=== PATIENT | female | born 1970 | race Caucasian/White ===

== ENCOUNTER 2019-08-05 14:29 | Emergency (ER) | payer OTHER, MEDICAID, SELFPAY ==
[2019-08-05 14:44] VITALS: BP 203/127; PULSE 82; RESP 15; TEMP 36.4; O2SAT 99; BMI 21.7
--- NOTE | 2019-08-05 15:16 | ED_ITS ---
HPI - Wound/Laceration <SIOBHAN Gonzalez - Last Filed: 08/05/19 21:28> General Chief Complaint: Wound/Laceration Stated Complaint: Tag on arm seeping, 4 days Time Seen by Provider: 08/05/19 14:48 Source: patient Mode of arrival: ambulatory Limitations: no limitations History of Present Illness HPI narrative: 49-year-old female who is a heavy smoker and has a history of Crohn's disease, presents emergency department today complaining of increased pain her skin tag that she tried to remove with butane 4 days ago. She states the pain is a dull aching 8/10 that is worse with movement and palpation. She reports associated increased redness, clear oozing from the wound, increased warmth, chills, I believe she may have had a fever 1 point. She states the skin tag turn black and then started to ooze clear fluid. She denies any chest pain, dizziness, syncope, shortness of breath, vision changes, severe headaches, either concerning symptoms. Related Data Previous Rx's Medication Instructions Recorded doxycycline hyclate 100 mg PO BID 7 Days #14 cap 08/05/19 Allergies Allergy/AdvReac Type Severity Reaction Status Date / Time NSAIDS (Non-Steroidal Allergy Verified 08/05/19 14:44 Anti-Inflamma Penicillins Allergy Verified 08/05/19 14:44 Review of Systems <SIOBHAN Gonzalez - Last Filed: 08/05/19 21:28> Review of Systems Narrative: REVIEW OF SYSTEMS: GENERAL: Denies fever or chills. HENT: Denies head trauma. EYE: Denies double vision or vision loss. CARDIOVASCULAR: Denies syncope. MUSCULOSKELETAL: Denies weakness, or deformities. INTEGUMENTARY: Complains of redness and pain to her in her arms surrounding a skin tag, see HPI. NEURO: Denies numbness or tingling. PFSH <SIOBHAN Gonzalez - Last Filed: 08/05/19 21:28> Medical History Smoker (Acute) Social History Smoking Status: Current every day smoker Social History Smoking Status: Current every day smoker Exam <SIOBHAN Gonzalez - Last Filed: 08/05/19 21:28> Initial Vital Signs Initial Vital Signs: Vital Signs Temperature 97.5 F L 08/05/19 14:44 Pulse Rate 82 08/05/19 14:44 Respiratory Rate 15 08/05/19 14:44 Blood Pressure 203/127 H 08/05/19 14:44 Pulse Oximetry 99 08/05/19 14:44 PHYSICAL EXAMINATION: GENERAL: Well groomed, alert, and cooperative. Answers questions promptly and appropriately. Vital signs noted. HENT: Normocephalic, atraumatic. RESPIRATORY: Normal respiratory rate, trachea midline, airway patent. No stridor, nasal flaring or accessory muscle use. Smoker's cough present during examination. MUSCULOSKELETAL: Normal gait and coordination. Equal tone and mass bilaterally. EXTREMITIES: CMS intact. Moves all extremities. SKIN: Warm, dry, soft, appropriate color for ethnicity. A 4 cm skin tag was noted to right side of in her upper arm. Tip of the skin tag was black in color most likely indicating freezing that occurred with the butane application. Part of the skin tag was blistered and oozing serosanguineous fluid. There was 2-3cm of surrounding erythema to the area with slightly increased warmth. NEURO: Alert and Oriented X 3. Good coordination. PSYCH: Appropriate affect and mood. <Trudi Hackett MD - Last Filed: 08/06/19 16:25> Initial Vital Signs Initial Vital Signs: Vital Signs Temperature 97.5 F L 08/05/19 14:44 Pulse Rate 82 08/05/19 14:44 Respiratory Rate 15 08/05/19 14:44 Blood Pressure 203/127 H 08/05/19 14:44 Pulse Oximetry 99 08/05/19 14:44 Course <SIOBHAN Gonzalez - Last Filed: 08/05/19 21:28> Course Course Narrative: Patient's wound was cleaned and dressed with bacitracin and gauze. I spoke with patient about her elevated blood pressure and she states she knows it is very high and does not want any treatment for it. I also requested that the vitals be retaken for discharge, the nursing staff stated that they forgot. Orders Ordered: Discontinued Medications Bacitracin (Bacitracin) 1 applic TOP NOW ONE Stop: 08/05/19 15:16 Last Admin: 08/05/19 15:42 Dose: Not Given Documented by: ALEXYS Vital Signs Vital signs: Vital Signs - 8 hr 08/05/19 14:44 Temperature 97.5 F L Pulse Rate 82 Respiratory Rate 15 Blood Pressure 203/127 H Pulse Oximetry 99 <Trudi Hackett MD - Last Filed: 08/06/19 16:25> Orders Ordered: Discontinued Medications Bacitracin (Bacitracin) 1 applic TOP NOW ONE Stop: 08/05/19 15:16 Last Admin: 08/05/19 15:42 Dose: Not Given Documented by: ALEXYS Vital Signs Vital signs: Vital Signs - 8 hr 08/05/19 14:44 Temperature 97.5 F L Pulse Rate 82 Respiratory Rate 15 Blood Pressure 203/127 H Pulse Oximetry 99 [facility] - Wound/Laceration <SIOBHAN Gonzalez - Last Filed: 08/05/19 21:28> Medical Records Attestation: I reviewed the patient's medical records. Lab Data Attestation: I reviewed the patient's lab results. [facility] Narrative Medical decision making narrative: I suspect that patient's symptoms are caused by inflammation from the freezing of the butane to her skin take as well as cellulitis due to surrounding erythema of the wound, serosanguineous oozing, increased pain, and patient report of chills. I do not have concerns that she is septic as she is afebrile, non tachycardic, and the infection appears very localized. Patient was started on doxycycline as she reports an airway swelling anaphylaxis reaction to penicillin therefore I did not prescribe Keflex. Patient states she has taken doxycycline in the past and has worked well, and did not prescribe clindamycin as she reports she has Crohn's disease. Strict return precautions given and follow-up instructions discussed Discharge Plan Departure Patient Disposition: Home Clinical Impression: Inflamed skin tag Cellulitis Qualifiers: Site of cellulitis: extremity Site of cellulitis of extremity: upper extremity Laterality: right Qualified Code(s): L03.113 - Cellulitis of right upper limb Discharge Date/Time: 08/05/19 15:42 Instructions: DI for Cellulitis -- Adult Activity Restrictions/Additional Instructions: Thank you for entrusting me with your care today. As discussed, it appears that your skin tag is both inflamed and infected. The blackened tissue is caused from using the Butane to freeze the skin tag. I prescribed you an antibiotic to help with infection, please take this as directed. Make an appointment in the next week or two for follow up with your primary care provider for removal of the skin take after the infection has subsided and to discuss treatment for your high blood pressure. Return to the emergency department if you experience very high fevers, uncontrollable vomiting, chest pain, shortness of breath, headaches, or other concerning issues. Prescriptions: New doxycycline hyclate 100 mg capsule 100 mg PO BID 7 Days Qty: 14 RF: 0
== END 2019-08-05 15:42 | disposition home or self-care (01) ==
PROVIDERS: Emergency Provider Nurse Practitioner
DX: L03.113 Cellulitis of right upper limb (principal)
CPT/HCPCS: 99283